=== PATIENT | female | born 2000 | race Caucasian/White ===

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

== ENCOUNTER 2020-07-04 18:23 | Emergency (ER) | payer BC, MEDICAID ==
[~2020-07-04] VITALS: Ht 160 cm; Wt 65.7 kg
[~2020-07-04 18:23] MED LIST: IBUP-2028 PO
[2020-07-04 18:29] VITALS: BP 103/69
[2020-07-04] MEDS ORDERED: LIDOCAINE HCL/EPINEPHRINE 1%-EPI 1:100,000 20 ML VIAL INFIL ONE (19:45)
[2020-07-04] MEDS ORDERED: TETANUS, DIPHTHERIA, PERTUSSIS VAC/PF 0.5ML (>7YR OLD) IM ONE (19:45)
== END 2020-07-04 20:55 | disposition home or self-care (01) ==
LOC: ER 18:30
DX: S41.111A Laceration without foreign body of right upper arm, initial encounter (principal); X58.XXXA Exposure to other specified factors, initial encounter; Y93.89 Activity, other specified; Y92.89 Other specified places as the place of occurrence of the external cause; Y99.8 Other external cause status
CPT/HCPCS: 90471; 90715; 99283

== ENCOUNTER 2020-07-15 11:09 | Emergency (ER) | payer SELFPAY ==
[~2020-07-15] VITALS: Ht 160 cm; Wt 66.0 kg
[2020-07-15] MEDS ORDERED: BACITRACIN ZINC OINT UDPKT TOP ONE (11:45)
[2020-07-15 11:56] VITALS: BP 115/77
== END 2020-07-15 11:57 | disposition home or self-care (01) ==
LOC: ER 11:09
DX: S41.111D Laceration without foreign body of right upper arm, subsequent encounter (principal); Z48.02 Encounter for removal of sutures; X58.XXXD Exposure to other specified factors, subsequent encounter
CPT/HCPCS: 99283